=== PATIENT | female | born 1955 | race African-American/Black ===

== ENCOUNTER 2016-04-26 00:34 | Inpatient (IN) | payer MEDICARE, OTHER ==
[~2016-04-26] VITALS: Ht 168.9 cm; Wt 97.5 kg
[2016-04-26] MEDS ORDERED: MORPHINE SULFATE 4 MG/ML CPJ (NOT FOR IM USE) IV STA (01:25)
[2016-04-26] MEDS ORDERED: ACETAMINOPHEN 325MG TABLET PO STA (01:25)
[2016-04-26] MEDS ORDERED: ONDANSETRON HCL 4MG/2ML VIAL IV STA (01:25)
[2016-04-26] MEDS ORDERED: SODIUM CHLORIDE 0.9% 1000ML BAG (SEPSIS BOLUS) IV ONE (01:30)
[2016-04-26 01:46] LABS: HEMATOCRIT. 38.5 % (36.0-48.0); HEMOGLOBIN. 12.9 g/dL (12.0-16.0); MEAN CORPUSCULAR HEMOGLOBIN 30.1 pg (28.0-32.0); MEAN CORPUSCULAR HGB CONC 33.6 g/dL (31.0-37.0); MEAN CORPUSCULAR VOLUME 89.5 fL (81.0-99.0); MEAN PLATELET VOLUME 9.1 fl (7.4-10.4); PLATELET 205 x1000/uL (130-400); RED CELL DISTRIBUTION WIDTH 13.7 % (11.6-14.6); WHITE BLOOD COUNT 21.5 x1000/uL (4.5-11.0)
[2016-04-26 01:51] LABS: CHLORIDE 106 mEq/L (98-107); INDEX HEMOLYSI 1 (1-3); INDEX ICTERIC 1 (1-4); INDEX LIPEMIC 1 (1-3)
[2016-04-26 01:52] LABS: DIFFERENTIAL COMMENT 1
[2016-04-26 01:52] LABS: CLARITY URINE CLOUDY (CLEAR); COLOR URINE DARK YELLOW (YELLOW); GLUCOSE URINE NEGATIVE (NEGATIVE); KETONES URINE 1+ (NEGATIVE); LEUKOCYTE ESTERASE URINE TRACE (NEGATIVE); NITRITE URINE NEGATIVE (NEGATIVE); OCCULT BLOOD URINE 1+ (NEGATIVE); PROTEIN URINE 1+ (NEGATIVE); SPECIFIC GRAVITY URINE 1.024 (1.005-1.030)
[2016-04-26 01:53] LABS: PROTHROMBIN TIME 10.4 sec
[2016-04-26 01:55] LABS: ALBUMIN 3.1 g/dL (3.4-5.0); ANION GAP 11; CALCIUM 9.1 mg/dL (8.5-10.1); CARBON DIOXIDE 27 mEq/L (21-32); UREA NITROGEN BLOOD 11 mg/dL (7-21)
[2016-04-26 01:59] LABS: ALANINE AMINOTRANSFERASE 15 IU/L (13-61); eGFR > 60 mL/min (>60)
[2016-04-26] MEDS ORDERED: LEVOFLOXACIN 750MG PREMIX 150 ML IV ONE (02:00)
[2016-04-26 02:41] LABS: BACTERIA URINE 2+; RBC URINE 0-2 /hpf (0-2); SQUAMOUS EPITHELIAL CELL URINE 1+ /lpf (RARE/1+); WBC URINE 0-2 /hpf (0-2)
[2016-04-26 03:01] LABS: PLATELET ESTIMATE NORMAL
[2016-04-26] MEDS ORDERED: CLONIDINE 0.1MG TABLET PO PRN (04:00)
[2016-04-26] MEDS ORDERED: LORAZEPAM 2MG/ML CPJ IV PRN (04:00)
[2016-04-26] MEDS ORDERED: DOCUSATE SODIUM 100MG CAPSULE PO PRN (04:00)
[2016-04-26] MEDS ORDERED: ENOXAPARIN 40MG/0.4ML SYR SUBCUT SCH (04:00)
[2016-04-26] MEDS ORDERED: VANCOMYCIN 1 G PREMIX 200 ML IV SCH ×2 (04:00→23:30)
[2016-04-26] MEDS ORDERED: DIPHENHYDRAMINE 50MG/ML VIAL IV PRN (04:00)
[2016-04-26] MEDS ORDERED: PROMETHAZINE/DEXTROMETHORPHAN 6.25-15MG/5ML BOTTLE 120ML PO PRN (04:00)
[2016-04-26] MEDS ORDERED: MAGNESIUM/ALUMINUM HYDROXIDE/SIMETHICONE 30ML UDC PO PRN (04:00)
[2016-04-26 06:12] LABS: CREATINE KINASE MB FRACTION < 0.5 ng/mL (0.5-3.6); TROPONIN I < 0.02 ng/mL (0.00-0.04)
[2016-04-26] MEDS: ACETAMINOPHEN 325MG TABLET PO PRN (06:33)
[2016-04-26 08:00] VITALS: BP 99/67
[2016-04-26 10:00] VITALS: BP 99/66
[2016-04-26] MEDS ORDERED: POTASSIUM CHLORIDE INJ 40 MEQ in DEXT 5% WATER 250 ML IV NR (10:00)
[2016-04-26] MEDS: ENOXAPARIN 30MG/0.3ML SYR SUBCUT SCH ×2 (10:27→20:48)
[2016-04-26] MEDS: PIPERACILLIN/TAZ 3.375G PREMIX 50 ML IV SCH ×2 (11:08→19:13)
[2016-04-26] MEDS ORDERED: PRED1DRO LEFTEYE (11:29)
[2016-04-26] MEDS ORDERED: AMLO10TA80 PO (11:29)
[2016-04-26] MEDS ORDERED: VANCOMYCIN 1500MG in DEXTROSE 5% WATER 250ML IV NR (11:30)
[2016-04-26 11:37] LABS: *AMPHETAMINES SCREEN URINE NEGATIVE (NEGATIVE); *BARBITURATES SCREEN URINE NEGATIVE (NEGATIVE); *BENZODIAZEPINES SCREEN URINE NEGATIVE (NEGATIVE); *COCAINE SCREEN URINE NEGATIVE (NEGATIVE); CANNABINOID URINE SCREEN NEGATIVE (NEGATIVE); ECSTASY MDMA SCREEN URINE NEGATIVE (NEGATIVE); METHADONE URINE SCREEN NEGATIVE (NEGATIVE); OPIATES URINE SCREEN NEGATIVE (NEGATIVE); PHENCYCLIDINE URINE SCREEN NEGATIVE (NEGATIVE)
[2016-04-26] MEDS: IPRATROPIUM/ALBUTEROL 0.5-3(2.5)MG/3ML NEB INH PRN ×2 (11:50→20:31)
[2016-04-26 12:00] VITALS: BP 99/69
[2016-04-26 12:26] LABS: HEMATOCRIT. 33.1 % (36.0-48.0); HEMOGLOBIN. 10.9 g/dL (12.0-16.0); MEAN CORPUSCULAR HEMOGLOBIN 30.1 pg (28.0-32.0); MEAN PLATELET VOLUME 9.3 fl (7.4-10.4); PLATELET 173 x1000/uL (130-400); RED BLOOD CELL COUNT 3.64 mill/uL (4.2-5.4); RED CELL DISTRIBUTION WIDTH 13.7 % (11.6-14.6); WHITE BLOOD COUNT 26.7 x1000/uL (4.5-11.0)
[2016-04-26 12:28] LABS: DIFFERENTIAL COMMENT 1
[2016-04-26 12:49] LABS: ANION GAP 12; CALCIUM 7.8 mg/dL (8.5-10.1); CARBON DIOXIDE 26 mEq/L (21-32); CHLORIDE 108 mEq/L (98-107); INDEX HEMOLYSI 1 (1-3); INDEX ICTERIC 1 (1-4); INDEX LIPEMIC 1 (1-3); MAGNESIUM 1.6 mg/dL (1.8-2.4); UREA NITROGEN BLOOD 7 mg/dL (7-21); eGFR > 60 mL/min (>60)
[2016-04-26] MEDS ORDERED: POTASSIUM CHLORIDE 20MEQ TABLET SR PO NR (14:11)
[2016-04-26] MEDS: IPRATROPIUM/ALBUTEROL 0.5-3(2.5)MG/3ML NEB HHN SCH ×2 (14:16→20:30)
[2016-04-26 14:37] LABS: PLATELET ESTIMATE NORMAL
[2016-04-26] MEDS ORDERED: VANCOMYCIN 1,500 MG in DEXT 5% WATER 250 ML IV NR (15:00)
[2016-04-26] MEDS ORDERED: MAGNESIUM 4 G PREMIX 100 ML IV NR (15:30)
[2016-04-26 15:59] LABS: CREATINE KINASE MB FRACTION < 0.5 ng/mL (0.5-3.6); TROPONIN I < 0.02 ng/mL (0.00-0.04)
[2016-04-26 16:00] VITALS: BP 108/76
[2016-04-26] MEDS: PREDNISOLONE ACETATE 1% OPHTH DROPS 1ML LEFTEYE SCH ×2 (16:07→20:44)
[2016-04-26] MEDS: GUAIFENESIN-DM 200MG-20MG/10ML UDC PO PRN (16:35)
[2016-04-26 20:00] VITALS: BP 92/61
[2016-04-26] MEDS ORDERED: SODIUM CHLORIDE 0.9% 1,000 ML IV SCH (20:00)
[2016-04-26] MEDS: VANCOMYCIN 1 G PREMIX 200 ML IV SCH (20:44)
[2016-04-27] VITALS: BP 103/78
[2016-04-27] MEDS: PIPERACILLIN/TAZ 3.375G PREMIX 50 ML IV SCH ×2 (01:35→11:03)
[2016-04-27] MEDS: IPRATROPIUM/ALBUTEROL 0.5-3(2.5)MG/3ML NEB HHN SCH ×4 (02:00→20:14)
[2016-04-27 04:00] VITALS: BP 106/74
[2016-04-27 07:01] LABS: BASOPHILS % 0.3 % (0.0-2.0); DIFFERENTIAL COMMENT 0; EOSINOPHILS % 0.3 % (0.0-5.0); HEMATOCRIT. 32.8 % (36.0-48.0); HEMOGLOBIN. 10.9 g/dL (12.0-16.0); LYMPHOCYTES % 9.9 % (20.0-50.0); MEAN CORPUSCULAR HEMOGLOBIN 29.7 pg (28.0-32.0); MEAN CORPUSCULAR HGB CONC 33.1 g/dL (31.0-37.0); MEAN CORPUSCULAR VOLUME 89.9 fL (81.0-99.0); MEAN PLATELET VOLUME 10.1 fl (7.4-10.4); MONOCYTES % 5.6 % (2.0-8.0); NEUTROPHILS % 83.9 % (40.0-76.0); PLATELET 187 x1000/uL (130-400); RED BLOOD CELL COUNT 3.65 mill/uL (4.2-5.4); RED CELL DISTRIBUTION WIDTH 13.9 % (11.6-14.6)
[2016-04-27 07:19] LABS: ANION GAP 12; CALCIUM 8.2 mg/dL (8.5-10.1); CARBON DIOXIDE 25 mEq/L (21-32); CHLORIDE 109 mEq/L (98-107); INDEX HEMOLYSI 1 (1-3); INDEX ICTERIC 1 (1-4); INDEX LIPEMIC 1 (1-3); UREA NITROGEN BLOOD 6 mg/dL (7-21); eGFR > 60 mL/min (>60)
[2016-04-27 08:00] VITALS: BP 118/79
[2016-04-27] MEDS: PREDNISOLONE ACETATE 1% OPHTH DROPS 1ML LEFTEYE SCH ×4 (09:00→21:16)
[2016-04-27] MEDS ORDERED: AMLODIPINE 10MG TABLET PO SCH (09:00)
[2016-04-27] MEDS: VANCOMYCIN 1 G PREMIX 200 ML IV SCH (09:52)
[2016-04-27] MEDS: ENOXAPARIN 30MG/0.3ML SYR SUBCUT SCH ×2 (09:52→21:16)
[2016-04-27 12:00] VITALS: BP 126/91
[2016-04-27 16:00] VITALS: BP 145/99
[2016-04-27] MEDS: CEFTRIAXONE 1 G PREMIX 50 ML IV SCH (17:36)
[2016-04-27] MEDS: MORPHINE SULFATE 2 MG/ML CPJ (NOT FOR IM USE) IV PRN (17:42)
[2016-04-27 20:00] VITALS: BP 126/82
[2016-04-27] MEDS: ACETAMINOPHEN 325MG TABLET PO PRN (20:10)
[2016-04-28] VITALS (7 sets, daily range): BP systolic 101–206; BP diastolic 72–105
[2016-04-28] MEDS: ACETAMINOPHEN 325MG TABLET PO PRN ×2 (01:11→12:48)
[2016-04-28] MEDS: IPRATROPIUM/ALBUTEROL 0.5-3(2.5)MG/3ML NEB HHN SCH ×4 (02:34→20:30)
[2016-04-28] MEDS: PREDNISOLONE ACETATE 1% OPHTH DROPS 1ML LEFTEYE SCH ×4 (08:15→21:22)
[2016-04-28] MEDS: ENOXAPARIN 30MG/0.3ML SYR SUBCUT SCH ×2 (08:15→21:22)
[2016-04-28] MEDS: AZITHROMYCIN 500 MG TABLET PO SCH (16:36)
[2016-04-28] MEDS: GUAIFENESIN-DM 200MG-20MG/10ML UDC PO PRN (17:01)
[2016-04-28] MEDS: CEFTRIAXONE 1 G PREMIX 50 ML IV SCH (17:08)
[2016-04-29] VITALS: BP 144/91
[2016-04-29] MEDS: IPRATROPIUM/ALBUTEROL 0.5-3(2.5)MG/3ML NEB HHN SCH ×4 (02:39→20:30)
[2016-04-29 04:00] VITALS: BP 147/92
[2016-04-29 06:06] LABS: HEMATOCRIT. 32.5 % (36.0-48.0); HEMOGLOBIN. 11.1 g/dL (12.0-16.0); MEAN CORPUSCULAR HEMOGLOBIN 30.6 pg (28.0-32.0); MEAN CORPUSCULAR HGB CONC 34.1 g/dL (31.0-37.0); MEAN CORPUSCULAR VOLUME 89.7 fL (81.0-99.0); MEAN PLATELET VOLUME 9.5 fl (7.4-10.4); PLATELET 254 x1000/uL (130-400); RED BLOOD CELL COUNT 3.62 mill/uL (4.2-5.4); RED CELL DISTRIBUTION WIDTH 14.1 % (11.6-14.6); WHITE BLOOD COUNT 11.8 x1000/uL (4.5-11.0)
[2016-04-29 06:24] LABS: DIFFERENTIAL COMMENT 1
[2016-04-29 06:51] LABS: CHLORIDE 105 mEq/L (98-107); INDEX HEMOLYSI 1 (1-3); INDEX ICTERIC 1 (1-4); INDEX LIPEMIC 1 (1-3)
[2016-04-29 06:56] LABS: ANION GAP 13; CALCIUM 8.7 mg/dL (8.5-10.1); CARBON DIOXIDE 27 mEq/L (21-32); UREA NITROGEN BLOOD 5 mg/dL (7-21); eGFR > 60 mL/min (>60)
[2016-04-29 08:00] VITALS: BP 145/59
[2016-04-29] MEDS: AZITHROMYCIN 500 MG TABLET PO SCH (08:58)
[2016-04-29] MEDS: PREDNISOLONE ACETATE 1% OPHTH DROPS 1ML LEFTEYE SCH ×4 (08:58→21:00)
[2016-04-29] MEDS: ENOXAPARIN 30MG/0.3ML SYR SUBCUT SCH ×2 (08:58→20:59)
[2016-04-29] MEDS ORDERED: POTASSIUM CHLORIDE 40MEQ/30ML UDC PO ONE (10:00)
[2016-04-29] MEDS ORDERED: POTASSIUM CHLORIDE 20MEQ TABLET SR PO NR (10:15)
[2016-04-29 10:41] LABS: PLATELET ESTIMATE NORMAL
[2016-04-29 12:00] VITALS: BP 143/94
[2016-04-29] MEDS: ONDANSETRON HCL 4MG/2ML VIAL IV PRN (13:37)
[2016-04-29 16:00] VITALS: BP 140/84
[2016-04-29] MEDS: ACETAMINOPHEN 325MG TABLET PO PRN (16:29)
[2016-04-29] MEDS: CEFTRIAXONE 1 G PREMIX 50 ML IV SCH (17:21)
[2016-04-29 20:00] VITALS: BP 116/76
[2016-04-29] MEDS: MORPHINE SULFATE 2 MG/ML CPJ (NOT FOR IM USE) IV PRN (21:00)
[2016-04-30] VITALS (7 sets, daily range): BP systolic 109–151; BP diastolic 71–98
[2016-04-30] MEDS: IPRATROPIUM/ALBUTEROL 0.5-3(2.5)MG/3ML NEB HHN SCH ×4 (01:43→20:52)
[2016-04-30 05:05] LABS: HEMATOCRIT. 33.7 % (36.0-48.0); HEMOGLOBIN. 11.1 g/dL (12.0-16.0); MEAN CORPUSCULAR HEMOGLOBIN 29.9 pg (28.0-32.0); MEAN CORPUSCULAR HGB CONC 33.1 g/dL (31.0-37.0); MEAN CORPUSCULAR VOLUME 90.2 fL (81.0-99.0); PLATELET 300 x1000/uL (130-400); RED BLOOD CELL COUNT 3.73 mill/uL (4.2-5.4); RED CELL DISTRIBUTION WIDTH 14.1 % (11.6-14.6); WHITE BLOOD COUNT 12.3 x1000/uL (4.5-11.0)
[2016-04-30 05:29] LABS: ANION GAP 10; CALCIUM 8.5 mg/dL (8.5-10.1); CARBON DIOXIDE 31 mEq/L (21-32); CHLORIDE 106 mEq/L (98-107); INDEX HEMOLYSI 1 (1-3); INDEX ICTERIC 1 (1-4); INDEX LIPEMIC 1 (1-3); UREA NITROGEN BLOOD 5 mg/dL (7-21); eGFR > 60 mL/min (>60)
[2016-04-30 06:52] LABS: DIFFERENTIAL COMMENT 1
[2016-04-30] MEDS: ENOXAPARIN 30MG/0.3ML SYR SUBCUT SCH ×2 (09:11→21:42)
[2016-04-30] MEDS: AZITHROMYCIN 500 MG TABLET PO SCH (09:11)
[2016-04-30] MEDS: PREDNISOLONE ACETATE 1% OPHTH DROPS 1ML LEFTEYE SCH ×4 (09:17→21:42)
[2016-04-30 14:04] LABS: PLATELET ESTIMATE NORMAL
[2016-04-30] MEDS: ONDANSETRON HCL 4MG/2ML VIAL IV PRN (14:42)
[2016-04-30] MEDS: MORPHINE SULFATE 2 MG/ML CPJ (NOT FOR IM USE) IV PRN ×2 (14:44→21:45)
[2016-04-30] MEDS: AMLODIPINE 10MG TABLET PO SCH (14:50)
[2016-04-30] MEDS: CEFTRIAXONE 1 G PREMIX 50 ML IV SCH (18:03)
[2016-04-30] MEDS: GUAIFENESIN-DM 200MG-20MG/10ML UDC PO PRN (22:22)
[2016-05-01] VITALS: BP 103/63
[2016-05-01] MEDS: IPRATROPIUM/ALBUTEROL 0.5-3(2.5)MG/3ML NEB HHN SCH ×4 (03:24→20:50)
[2016-05-01 04:00] VITALS: BP 121/81
[2016-05-01 06:43] LABS: BASOPHILS % 0.5 % (0.0-2.0); EOSINOPHILS % 1.5 % (0.0-5.0); HEMATOCRIT. 32.6 % (36.0-48.0); HEMOGLOBIN. 10.9 g/dL (12.0-16.0); MEAN CORPUSCULAR HEMOGLOBIN 30.1 pg (28.0-32.0); MEAN CORPUSCULAR HGB CONC 33.3 g/dL (31.0-37.0); MEAN CORPUSCULAR VOLUME 90.2 fL (81.0-99.0); MEAN PLATELET VOLUME 8.9 fl (7.4-10.4); MONOCYTES % 5.6 % (2.0-8.0); NEUTROPHILS % 77.4 % (40.0-76.0); PLATELET 321 x1000/uL (130-400); RED BLOOD CELL COUNT 3.61 mill/uL (4.2-5.4); WHITE BLOOD COUNT 15.8 x1000/uL (4.5-11.0)
[2016-05-01 08:00] VITALS: BP 122/78
[2016-05-01] MEDS: AZITHROMYCIN 500 MG TABLET PO SCH (08:47)
[2016-05-01] MEDS: AMLODIPINE 10MG TABLET PO SCH (08:48)
[2016-05-01] MEDS: ENOXAPARIN 30MG/0.3ML SYR SUBCUT SCH ×2 (08:48→21:05)
[2016-05-01] MEDS: ACETAMINOPHEN 325MG TABLET PO PRN ×2 (08:48→21:05)
[2016-05-01] MEDS: PREDNISOLONE ACETATE 1% OPHTH DROPS 1ML LEFTEYE SCH ×4 (08:49→21:05)
[2016-05-01 12:00] VITALS: BP 116/71
[2016-05-01 13:08] LABS: ALBUMIN 2.6 g/dL (3.4-5.0); BILIRUBIN DIRECT 0.1 mg/dL (0.0-0.2)
[2016-05-01] MEDS ORDERED: MORPHINE SULFATE 2 MG/ML CPJ (NOT FOR IM USE) IV PRN (13:30)
[2016-05-01] MEDS: PIPERACILLIN/TAZ 3.375G PREMIX 50 ML IV SCH ×2 (13:34→21:04)
[2016-05-01] MEDS ORDERED: VANCOMYCIN 1,500 MG in DEXT 5% WATER 250 ML IV NR (14:30)
[2016-05-01 16:00] VITALS: BP 102/65
[2016-05-01 20:00] VITALS: BP 123/76
[2016-05-01] MEDS: VANCOMYCIN 1 G PREMIX 200 ML IV SCH (22:43)
[2016-05-02] VITALS: BP 127/89
[2016-05-02] MEDS: IPRATROPIUM/ALBUTEROL 0.5-3(2.5)MG/3ML NEB HHN SCH ×4 (02:25→19:55)
[2016-05-02] MEDS: PIPERACILLIN/TAZ 3.375G PREMIX 50 ML IV SCH ×4 (02:42→20:48)
[2016-05-02 04:00] VITALS: BP 118/78
[2016-05-02] MEDS: VANCOMYCIN 1 G PREMIX 200 ML IV SCH ×3 (06:02→22:43)
[2016-05-02 08:00] VITALS: BP 122/77
[2016-05-02] MEDS: AMLODIPINE 10MG TABLET PO SCH (09:28)
[2016-05-02] MEDS: PREDNISOLONE ACETATE 1% OPHTH DROPS 1ML LEFTEYE SCH ×4 (09:29→20:48)
[2016-05-02] MEDS: ENOXAPARIN 30MG/0.3ML SYR SUBCUT SCH ×2 (09:37→20:48)
[2016-05-02 09:40] LABS: BASOPHILS % 1.3 % (0.0-2.0); EOSINOPHILS % 2.1 % (0.0-5.0); HEMATOCRIT. 36.7 % (36.0-48.0); HEMOGLOBIN. 12.1 g/dL (12.0-16.0); LYMPHOCYTES % 9.2 % (20.0-50.0); MEAN CORPUSCULAR VOLUME 90.7 fL (81.0-99.0); MEAN PLATELET VOLUME 8.9 fl (7.4-10.4); MONOCYTES % 4.6 % (2.0-8.0); NEUTROPHILS % 82.8 % (40.0-76.0); PLATELET 361 x1000/uL (130-400); RED BLOOD CELL COUNT 4.05 mill/uL (4.2-5.4); WHITE BLOOD COUNT 16.7 x1000/uL (4.5-11.0)
[2016-05-02] MEDS ORDERED: IOHEXOL-300 100 ML BOTTLE ONE (11:38)
[2016-05-02] MEDS ORDERED: SODIUM CHLORIDE 0.9% 10ML VIAL ONE (11:38)
[2016-05-02 12:00] VITALS: BP 118/75
[2016-05-02] MEDS: ONDANSETRON HCL 4MG/2ML VIAL IV PRN (15:42)
[2016-05-02 16:00] VITALS: BP 110/78
[2016-05-02 20:00] VITALS: BP 110/73
[2016-05-03] VITALS: BP 100/66
[2016-05-03] MEDS: IPRATROPIUM/ALBUTEROL 0.5-3(2.5)MG/3ML NEB HHN SCH ×4 (01:51→21:39)
[2016-05-03] MEDS: PIPERACILLIN/TAZ 3.375G PREMIX 50 ML IV SCH ×4 (02:20→20:33)
[2016-05-03 04:00] VITALS: BP 108/69
[2016-05-03 05:31] LABS: BASOPHILS % 0.7 % (0.0-2.0); EOSINOPHILS % 2.9 % (0.0-5.0); HEMATOCRIT. 32.3 % (36.0-48.0); HEMOGLOBIN. 10.7 g/dL (12.0-16.0); LYMPHOCYTES % 11.2 % (20.0-50.0); MEAN CORPUSCULAR HGB CONC 33.1 g/dL (31.0-37.0); MEAN CORPUSCULAR VOLUME 90.8 fL (81.0-99.0); MEAN PLATELET VOLUME 8.9 fl (7.4-10.4); MONOCYTES % 6.7 % (2.0-8.0); NEUTROPHILS % 78.5 % (40.0-76.0); PLATELET 329 x1000/uL (130-400); RED BLOOD CELL COUNT 3.55 mill/uL (4.2-5.4); RED CELL DISTRIBUTION WIDTH 13.9 % (11.6-14.6); WHITE BLOOD COUNT 14.5 x1000/uL (4.5-11.0)
[2016-05-03] MEDS: VANCOMYCIN 1 G PREMIX 200 ML IV SCH (06:13)
[2016-05-03 07:40] LABS: ANION GAP 10; CALCIUM 8.4 mg/dL (8.5-10.1); CARBON DIOXIDE 31 mEq/L (21-32); CHLORIDE 104 mEq/L (98-107); INDEX HEMOLYSI 1 (1-3); INDEX ICTERIC 1 (1-4); INDEX LIPEMIC 1 (1-3); UREA NITROGEN BLOOD 5 mg/dL (7-21); VANCOMYCIN TROUGH 30.8 ug/mL (5.0-10.0); eGFR > 60 mL/min (>60)
[2016-05-03 08:00] VITALS: BP 106/75
[2016-05-03] MEDS ORDERED: POTASSIUM CHLORIDE 20MEQ TABLET SR PO NR (08:15)
[2016-05-03] MEDS: PREDNISOLONE ACETATE 1% OPHTH DROPS 1ML LEFTEYE SCH ×4 (09:00→21:00)
[2016-05-03] MEDS: AMLODIPINE 10MG TABLET PO SCH (10:17)
[2016-05-03] MEDS: ENOXAPARIN 30MG/0.3ML SYR SUBCUT SCH ×2 (10:17→21:00)
[2016-05-03 12:00] VITALS: BP 116/73
[2016-05-03 16:00] VITALS: BP 101/70
[2016-05-03] MEDS: ONDANSETRON HCL 4MG/2ML VIAL IV PRN (18:04)
[2016-05-03 20:00] VITALS: BP 108/68
[2016-05-04] VITALS: BP 126/88
[2016-05-04] MEDS: IPRATROPIUM/ALBUTEROL 0.5-3(2.5)MG/3ML NEB HHN SCH ×3 (02:17→13:19)
[2016-05-04] MEDS: PIPERACILLIN/TAZ 3.375G PREMIX 50 ML IV SCH ×4 (02:19→19:45)
[2016-05-04 04:00] VITALS: BP 129/86
[2016-05-04] MEDS: VANCOMYCIN 1 G PREMIX 200 ML IV SCH ×2 (06:03→17:25)
[2016-05-04 08:00] VITALS: BP 121/87
[2016-05-04 08:56] LABS: BASOPHILS % 0.8 % (0.0-2.0); EOSINOPHILS % 2.9 % (0.0-5.0); HEMATOCRIT. 33.4 % (36.0-48.0); HEMOGLOBIN. 11.1 g/dL (12.0-16.0); LYMPHOCYTES % 12.7 % (20.0-50.0); MEAN CORPUSCULAR HEMOGLOBIN 29.9 pg (28.0-32.0); MEAN CORPUSCULAR HGB CONC 33.1 g/dL (31.0-37.0); MEAN CORPUSCULAR VOLUME 90.2 fL (81.0-99.0); MEAN PLATELET VOLUME 8.8 fl (7.4-10.4); MONOCYTES % 7.6 % (2.0-8.0); PLATELET 381 x1000/uL (130-400); WHITE BLOOD COUNT 12.7 x1000/uL (4.5-11.0)
[2016-05-04] MEDS: ENOXAPARIN 30MG/0.3ML SYR SUBCUT SCH (09:03)
[2016-05-04] MEDS: PREDNISOLONE ACETATE 1% OPHTH DROPS 1ML LEFTEYE SCH ×4 (09:03→22:37)
[2016-05-04 09:05] LABS: CALCIUM 8.6 mg/dL (8.5-10.1)
[2016-05-04] MEDS: AMLODIPINE 10MG TABLET PO SCH (09:05)
[2016-05-04 12:00] VITALS: BP 99/69
[2016-05-04] MEDS: SODIUM CHLORIDE 0.9% 1,000 ML IV SCH ×2 (13:26→22:22)
[2016-05-04] MEDS: ONDANSETRON HCL 4MG/2ML VIAL IV PRN ×2 (13:36→19:45)
[2016-05-04 16:00] VITALS: BP 114/78
[2016-05-04 20:00] VITALS: BP 109/75
[2016-05-05] VITALS: BP 107/65
[2016-05-05] MEDS: PIPERACILLIN/TAZ 3.375G PREMIX 50 ML IV SCH ×2 (01:21→13:43)
[2016-05-05] MEDS: ONDANSETRON HCL 4MG/2ML VIAL IV PRN ×3 (03:57→20:35)
[2016-05-05 04:00] VITALS: BP 109/70
[2016-05-05] MEDS: VANCOMYCIN 1 G PREMIX 200 ML IV SCH (05:43)
[2016-05-05 07:52] LABS: BASOPHILS % 1.1 % (0.0-2.0); EOSINOPHILS % 3.1 % (0.0-5.0); HEMATOCRIT. 34.5 % (36.0-48.0); HEMOGLOBIN. 11.5 g/dL (12.0-16.0); LYMPHOCYTES % 10.5 % (20.0-50.0); MEAN CORPUSCULAR HGB CONC 33.2 g/dL (31.0-37.0); MEAN CORPUSCULAR VOLUME 90.3 fL (81.0-99.0); NEUTROPHILS % 77.3 % (40.0-76.0); PLATELET 414 x1000/uL (130-400); RED BLOOD CELL COUNT 3.82 mill/uL (4.2-5.4); RED CELL DISTRIBUTION WIDTH 14.1 % (11.6-14.6); WHITE BLOOD COUNT 11.6 x1000/uL (4.5-11.0)
[2016-05-05 08:00] VITALS: BP 132/85
[2016-05-05] MEDS: AMLODIPINE 10MG TABLET PO SCH (08:41)
[2016-05-05] MEDS: PREDNISOLONE ACETATE 1% OPHTH DROPS 1ML LEFTEYE SCH ×4 (08:42→20:35)
[2016-05-05] MEDS: ENOXAPARIN 40MG/0.4ML SYR SUBCUT SCH (08:42)
[2016-05-05 10:17] LABS: CALCIUM 8.8 mg/dL (8.5-10.1); MAGNESIUM 2.3 mg/dL (1.8-2.4); PHOSPHORUS 2.9 mg/dL (2.5-4.9)
[2016-05-05 12:00] VITALS: BP 110/84
[2016-05-05 16:00] VITALS: BP 117/75
[2016-05-05] MEDS: ACETAMINOPHEN 325MG TABLET PO PRN (16:11)
[2016-05-05] MEDS: SODIUM CHLORIDE 0.9% 1,000 ML IV SCH ×2 (19:00→20:37)
[2016-05-05 20:00] VITALS: BP 101/61
[2016-05-06 00:01] VITALS: BP 104/71
[2016-05-06] MEDS: PIPERACILLIN/TAZ 3.375G PREMIX 50 ML IV SCH ×2 (00:19→13:46)
[2016-05-06 04:00] VITALS: BP 106/71
[2016-05-06] MEDS: SODIUM CHLORIDE 0.9% 1,000 ML IV SCH ×2 (05:00→15:55)
[2016-05-06 06:29] LABS: CALCIUM 8.2 mg/dL (8.5-10.1)
[2016-05-06 06:31] LABS: EOSINOPHILS % 2.5 % (0.0-5.0); HEMATOCRIT. 34.4 % (36.0-48.0); HEMOGLOBIN. 11.3 g/dL (12.0-16.0); LYMPHOCYTES % 8.8 % (20.0-50.0); MEAN CORPUSCULAR HEMOGLOBIN 29.9 pg (28.0-32.0); MEAN CORPUSCULAR HGB CONC 32.9 g/dL (31.0-37.0); MEAN CORPUSCULAR VOLUME 90.8 fL (81.0-99.0); MEAN PLATELET VOLUME 8.8 fl (7.4-10.4); MONOCYTES % 7.1 % (2.0-8.0); NEUTROPHILS % 80.6 % (40.0-76.0); PLATELET 408 x1000/uL (130-400); RED BLOOD CELL COUNT 3.79 mill/uL (4.2-5.4); WHITE BLOOD COUNT 14.5 x1000/uL (4.5-11.0)
[2016-05-06 08:00] VITALS: BP 127/83
[2016-05-06] MEDS: ENOXAPARIN 40MG/0.4ML SYR SUBCUT SCH (08:36)
[2016-05-06] MEDS: PREDNISOLONE ACETATE 1% OPHTH DROPS 1ML LEFTEYE SCH ×4 (08:36→21:17)
[2016-05-06] MEDS: ONDANSETRON HCL 4MG/2ML VIAL IV PRN (08:36)
[2016-05-06] MEDS: ACETAMINOPHEN 325MG TABLET PO PRN (08:48)
[2016-05-06] MEDS ORDERED: POTASSIUM CHLORIDE 20MEQ TABLET SR PO NR (09:00)
[2016-05-06] MEDS: AMLODIPINE 10MG TABLET PO SCH (10:27)
[2016-05-06 12:00] VITALS: BP 116/83
[2016-05-06] MEDS ORDERED: METOCLOPRAMIDE HCL 10MG/2ML VIAL IV PRN (13:45)
[2016-05-06 16:00] VITALS: BP 126/94
[2016-05-06] MEDS ORDERED: VANCOMYCIN 1250MG in DEXTROSE 5% WATER 250ML IV SCH (18:00)
[2016-05-06 20:00] VITALS: BP 117/75
[2016-05-06] MEDS: LORAZEPAM 2MG/ML CPJ IV PRN (21:17)
[2016-05-07 00:03] VITALS: BP 121/81
[2016-05-07] MEDS: PIPERACILLIN/TAZ 3.375G PREMIX 50 ML IV SCH ×2 (00:35→13:02)
[2016-05-07] MEDS: SODIUM CHLORIDE 0.9% 1,000 ML IV SCH ×2 (00:35→17:50)
[2016-05-07 04:00] VITALS: BP 127/88
[2016-05-07 06:59] LABS: HEMATOCRIT. 35.6 % (36.0-48.0); HEMOGLOBIN. 11.6 g/dL (12.0-16.0); MEAN CORPUSCULAR HEMOGLOBIN 29.8 pg (28.0-32.0); MEAN CORPUSCULAR HGB CONC 32.5 g/dL (31.0-37.0); MEAN CORPUSCULAR VOLUME 91.8 fL (81.0-99.0); PLATELET 366 x1000/uL (130-400); RED BLOOD CELL COUNT 3.88 mill/uL (4.2-5.4); WHITE BLOOD COUNT 16.2 x1000/uL (4.5-11.0)
[2016-05-07 07:01] LABS: CALCIUM 8.1 mg/dL (8.5-10.1)
[2016-05-07 07:36] LABS: DIFFERENTIAL COMMENT 1
[2016-05-07 08:00] VITALS: BP 130/78
[2016-05-07] MEDS ORDERED: POTASSIUM CHLORIDE 20MEQ TABLET SR PO NR (09:15)
[2016-05-07] MEDS: ENOXAPARIN 40MG/0.4ML SYR SUBCUT SCH (09:34)
[2016-05-07] MEDS: AMLODIPINE 10MG TABLET PO SCH (09:34)
[2016-05-07] MEDS: PREDNISOLONE ACETATE 1% OPHTH DROPS 1ML LEFTEYE SCH ×4 (09:35→22:33)
[2016-05-07 12:00] VITALS: BP 134/88
[2016-05-07 12:06] LABS: PLATELET ESTIMATE NORMAL
[2016-05-07] MEDS: ACETAMINOPHEN 325MG TABLET PO PRN ×2 (13:02→22:43)
[2016-05-07] MEDS: LORAZEPAM 2MG/ML CPJ IV PRN (13:07)
[2016-05-07 16:00] VITALS: BP 117/76
[2016-05-07] MEDS: LEVOFLOXACIN 500MG TABLET PO SCH (17:45)
[2016-05-07 20:00] VITALS: BP 103/81
[2016-05-07] MEDS ORDERED: VANCOMYCIN 1250MG in DEXTROSE 5% WATER 250ML IV SCH (21:00)
[2016-05-08] VITALS: BP 99/67
[2016-05-08] MEDS: SODIUM CHLORIDE 0.9% 1,000 ML IV SCH ×4 (01:03→14:23)
[2016-05-08 04:00] VITALS: BP 120/93
[2016-05-08 06:28] LABS: HEMATOCRIT. 33.3 % (36.0-48.0); HEMOGLOBIN. 10.8 g/dL (12.0-16.0); MEAN CORPUSCULAR HEMOGLOBIN 29.7 pg (28.0-32.0); MEAN CORPUSCULAR HGB CONC 32.5 g/dL (31.0-37.0); MEAN CORPUSCULAR VOLUME 91.2 fL (81.0-99.0); MEAN PLATELET VOLUME 9.1 fl (7.4-10.4); PLATELET 309 x1000/uL (130-400); RED BLOOD CELL COUNT 3.66 mill/uL (4.2-5.4); RED CELL DISTRIBUTION WIDTH 13.8 % (11.6-14.6); WHITE BLOOD COUNT 13.7 x1000/uL (4.5-11.0)
[2016-05-08 06:42] LABS: DIFFERENTIAL COMMENT 1
[2016-05-08 07:04] LABS: CALCIUM 7.8 mg/dL (8.5-10.1); MAGNESIUM 1.8 mg/dL (1.8-2.4)
[2016-05-08 08:00] VITALS: BP 126/85
[2016-05-08] MEDS: LEVOFLOXACIN 500MG TABLET PO SCH (08:24)
[2016-05-08] MEDS: AMLODIPINE 10MG TABLET PO SCH (08:27)
[2016-05-08] MEDS: ENOXAPARIN 40MG/0.4ML SYR SUBCUT SCH (08:27)
[2016-05-08] MEDS: ACETAMINOPHEN 325MG TABLET PO PRN (08:33)
[2016-05-08] MEDS: PREDNISOLONE ACETATE 1% OPHTH DROPS 1ML LEFTEYE SCH ×2 (09:00→13:34)
[2016-05-08 09:32] LABS: PLATELET ESTIMATE NORMAL
[2016-05-08] MEDS: ONDANSETRON HCL 4MG/2ML VIAL IV PRN (11:57)
[2016-05-08 12:00] VITALS: BP 95/69
[2016-05-08] MEDS ORDERED: ONDA4TAB5 PO (12:01)
[2016-05-08] MEDS ORDERED: LEVO500T15 PO (12:01)
[2016-05-08] MEDS ORDERED: POTASSIUM CHLORIDE 20MEQ TABLET SR PO NR (12:30)
[2016-05-08 14:07] VITALS: BP 95/69
[2016-05-08 16:00] VITALS: BP 109/67
== END 2016-05-08 16:40 | disposition home or self-care (01) | DRG 871 ==
LOC: ER 00:35 → 7WST 02:48 → SUPCPDRO 03:52
PROVIDERS: ADMIT Internal Medicine Nephrology; ATTEND Internal Medicine Nephrology
DX: A41.9 Sepsis, unspecified organism (principal); J18.9 Pneumonia, unspecified organism; J96.00 Acute respiratory failure, unspecified whether with hypoxia or hypercapnia; N39.0 Urinary tract infection, site not specified; N17.9 Acute kidney failure, unspecified; H54.8 Legal blindness, as defined in USA; E87.6 Hypokalemia; E83.42 Hypomagnesemia; F17.200 Nicotine dependence, unspecified, uncomplicated; I11.9 Hypertensive heart disease without heart failure; I51.7 Cardiomegaly; Z94.7 Corneal transplant status; Z79.899 Other long term (current) drug therapy
CPT/HCPCS: 36415; 71010; 71260; 80048; 80053; 80076; 80202; 80305; 81001; 82553; 83605; 83690; 83735; 84100; 84145; 84484; 85025; 85610; 85651; 86140; 87040; 87070; 87086; 87186; 87804; 93005; 94640; 96361; 96365; 96375; 99291; A4216; A6261; C1893; J0696; J1650; J1956; J2060; J2270; J2405; J2543; J2765; J3370; J3475; J3480; J7030; J7050; J7060; J7620; Q9967

== ENCOUNTER 2017-04-18 11:31 | Emergency (ER) | payer MEDICARE, OTHER ==
[~2017-04-18] VITALS: Ht 170.2 cm; Wt 98.0 kg
[~2017-04-18 11:31] MED LIST: AMLO10TA80 PO; LEVO500T2 PO; ONDA4TAB5 PO; PRED1DRO LEFTEYE
[2017-04-18] MEDS ORDERED: ASPIRIN 81MG TABLET PO ONE (12:15)
[2017-04-18 12:30] LABS: BASOPHILS % 0.6 % (0.0-2.0); EOSINOPHILS % 3.5 % (0.0-5.0); HEMATOCRIT. 37.2 % (36.0-48.0); HEMOGLOBIN. 12.4 g/dL (12.0-16.0); LYMPHOCYTES % 28.2 % (20.0-50.0); MEAN CORPUSCULAR HEMOGLOBIN 30.3 pg (28.0-32.0); MEAN CORPUSCULAR VOLUME 90.7 fL (81.0-99.0); MEAN PLATELET VOLUME 9.1 fl (7.4-10.4); MONOCYTES % 5.1 % (2.0-8.0); NEUTROPHILS % 62.6 % (40.0-76.0); PLATELET 210 x1000/uL (130-400); RED CELL DISTRIBUTION WIDTH 13.9 % (11.6-14.6)
[2017-04-18 12:37] LABS: PROTHROMBIN TIME 10.6 sec (9.4-11.6)
[2017-04-18 12:40] LABS: CHLORIDE 109 mEq/L (98-107)
[2017-04-18 12:44] LABS: TROPONIN I < 0.02 ng/mL (0.00-0.04)
[2017-04-18 16:26] VITALS: BP 119/79
== END 2017-04-18 16:28 | disposition home or self-care (01) ==
LOC: ER 12:34
DX: R07.2 Precordial pain (principal); I10 Essential (primary) hypertension; Z79.82 Long term (current) use of aspirin
CPT/HCPCS: 36415; 71045; 80053; 83880; 84484; 85025; 85610; 87804; 93005; 99285